=== PATIENT | male | born 1935 | race Caucasian/White ===

== ENCOUNTER 2017-09-07 15:52 | Emergency (ER) | payer MEDICARE, OTHER ==
[2017-09-07 17:01] LABS: ADD MAN DIFF? NO
[2017-09-07 17:05] LABS: BASOPHIL # 0.1 10^3/ul (0.0-0.1); EOSINOPHILS # 0.1 10^3/ul (0.0-0.5); EOSINOPHILS % 0.9 % (0.0-7.0); HEMATOCRIT 39.6 % (42.0-52.0); HEMOGLOBIN 12.9 g/dl (14.0-18.0); LYMPHOCYTES # 1.8 10^3/ul (0.8-2.9); LYMPHOCYTES % 25.8 % (15.0-51.0); MEAN CORPUSCULAR HEMOGLOBIN 31.7 pg (29.0-33.0); MEAN CORPUSCULAR HGB CONC 32.6 g/dl (32.0-37.0); MEAN CORPUSCULAR VOLUME 97.3 fl (82.0-101.0); MEAN PLATELET VOLUME 11.3 fl (7.4-10.4); MONOCYTES % 13.9 % (0.0-11.0); NEUTROPHILS % 58.1 % (39.0-77.0); PLATELET COUNT 140 10^3/UL (140-415); POSITIVE DIFF @See below; RED BLOOD COUNT 4.07 10^6/ul (4.70-6.10); RED CELL DISTRIBUTION WIDTH 15.6 % (11.5-14.5)
[2017-09-07 17:05] LABS: WHITE BLOOD COUNT 6.9 10^3/ul (4.8-10.8)
[2017-09-07 17:22] LABS: INR 1.52; PROTIME 18.6 Sec (11.9-14.9); PT RATIO 1.5
[2017-09-07 17:27] LABS: ANION GAP 14 (8-16); BLOOD UREA NITROGEN 34 mg/dl (7-20); CALCIUM 8.6 mg/dl (8.4-10.2); CARBON DIOXIDE 27 mmol/L (21-31); CHLORIDE 114 mmol/L (97-110); CREATININE 1.09 mg/dl (0.61-1.24); GLUCOSE 108 mg/dl (70-220); POTASSIUM 3.6 mmol/L (3.5-5.1); SODIUM 151 mmol/L (135-144)
[2017-09-07 17:38] LABS: B-TYPE NATRIURETIC PEPTIDE 2970 PG/ML (0-450); TROPONIN-I < 0.012 ng/ml (0.00-0.12)
[2017-09-07] MEDS: SOD CHLORIDE 0.9% 500 ML IV (19:30)
[2017-09-07] MEDS ORDERED: ACETAMINOPHEN 325 MG TAB PO (20:30)
[2017-09-07] MEDS ORDERED: ONDANSETRON 4 MG INJ IV (20:30)
== END 2017-09-07 22:05 | disposition left against medical advice (07) ==
LOC: E/R 15:52
DX: I50.9 Heart failure, unspecified (principal); I10 Essential (primary) hypertension; I48.2 Chronic atrial fibrillation; R55 Syncope and collapse; D64.9 Anemia, unspecified; E87.1 Hypo-osmolality and hyponatremia; E86.0 Dehydration; J81.0 Acute pulmonary edema; J90 Pleural effusion, not elsewhere classified; E86.9 Volume depletion, unspecified; I25.10 Atherosclerotic heart disease of native coronary artery without angina pectoris; J44.1 Chronic obstructive pulmonary disease with (acute) exacerbation; Z95.1 Presence of aortocoronary bypass graft; Z79.01 Long term (current) use of anticoagulants
CPT/HCPCS: 36415; 71045; 80048; 82962; 83880; 84484; 85025; 85610; 93005; 99285-25

== ENCOUNTER 2018-11-21 17:09 | Inpatient (IN) | payer MEDICARE, OTHER ==
[2018-11-21 17:30] LABS: ADD MAN DIFF? NO
[2018-11-21 17:31] LABS: WHITE BLOOD COUNT 6.5 10^3/ul (4.8-10.8)
[2018-11-21 17:31] LABS: BASOPHIL # 0.1 10^3/ul (0.0-0.1); BASOPHILS % 1.1 % (0.0-2.0); EOSINOPHILS # 0.1 10^3/ul (0.0-0.5); EOSINOPHILS % 1.2 % (0.0-7.0); HEMATOCRIT 42.2 % (42.0-52.0); HEMOGLOBIN 14.1 g/dl (14.0-18.0); LYMPHOCYTES # 2.1 10^3/ul (0.8-2.9); LYMPHOCYTES % 32.7 % (15.0-51.0); MEAN CORPUSCULAR HEMOGLOBIN 31.5 pg (29.0-33.0); MEAN CORPUSCULAR HGB CONC 33.4 g/dl (32.0-37.0); MEAN CORPUSCULAR VOLUME 94.2 fl (82.0-101.0); MEAN PLATELET VOLUME 10.5 fl (7.4-10.4); MONOCYTE # 0.8 10^3/ul (0.3-0.9); MONOCYTES % 12.4 % (0.0-11.0); NEUTROPHIL # 3.4 10^3/ul (1.6-7.5); NEUTROPHILS % 52.3 % (39.0-77.0); PLATELET COUNT 168 10^3/UL (140-415); RED BLOOD COUNT 4.48 10^6/ul (4.70-6.10); RED CELL DISTRIBUTION WIDTH 13.5 % (11.5-14.5)
[2018-11-21 17:51] LABS: ANION GAP 13 (5-13); BLOOD UREA NITROGEN 26 mg/dl (7-20); CALCIUM 9.5 mg/dl (8.4-10.2); CARBON DIOXIDE 23 mmol/L (21-31); CHLORIDE 107 mmol/L (97-110); CREATININE 1.15 mg/dl (0.61-1.24); GLUCOSE 104 mg/dl (70-220); SODIUM 143 mmol/L (135-144)
[2018-11-21 17:52] LABS: CHOLESTEROL 159 mg/dl (100-200)
[2018-11-21 17:52] LABS: CHOL/HDL RATIO 4.4 RATIO; CREATINE KINASE 171 IU/L (23-200); HDL CHOLESTEROL 36 mg/dl (31-75); LDL CHOLESTEROL,CALCULATED 96 mg/dl; TRIGLYCERIDES 133 mg/dl (0-149)
[2018-11-21 17:53] LABS: ETHANOL < 10.0 mg/dl (0-0)
[2018-11-21 17:54] LABS: INR 1.04; PROTIME 13.7 Sec (11.9-14.9); PT RATIO 1.1
[2018-11-21 18:03] LABS: TROPONIN-I < 0.012 ng/ml (0.000-0.120)
[2018-11-21] MEDS: SOD CHLORIDE 0.9% 500 ML IV (18:03)
[2018-11-21 18:04] LABS: CK-MB 1.63 ng/ml (0.0-2.4); TROPONIN-I < 0.012 ng/ml (0.000-0.120)
[2018-11-21 18:05] LABS: HEMOGLOBIN A1C 5.2 % (0-5.9)
[2018-11-21 18:17] LABS: ADD UMIC NO; UR ASCORBIC ACID 20 mg/dL (NEGATIVE); UR BILIRUBIN (Dip) NEGATIVE (NEGATIVE); UR BLOOD (Dip) NEGATIVE (NEGATIVE); UR CLARITY CLEAR (CLEAR); UR COLOR YELLOW (YELLOW); UR GLUCOSE (Dip) NEGATIVE (NEGATIVE); UR KETONES (Dip) NEGATIVE (NEGATIVE); UR LEUKOCYTE ESTERASE (Dip) NEGATIVE Leu/ul (NEGATIVE); UR NITRITE (Dip) NEGATIVE (NEGATIVE); UR SPECIFIC GRAVITY (Dip) 1.008 (1.003-1.030); UR TOTAL PROTEIN (Dip) NEGATIVE (NEGATIVE); UR UROBILINOGEN (Dip) NEGATIVE (NEGATIVE)
[2018-11-21 18:34] LABS: AADO2 Arterial 36.3 mmHg (7.0-24.0); Allen Test ACCEPTAB; Arterial Base Excess -0.9 mmol/L (-3.0-3); Arterial Blood Gas Oxygen Sat 93.6 mmHG (95.0-100.0); Arterial COHb 0.7 % (0.0-3.0); Arterial Fraction of Oxyhgb 92.8 % (93.0-99.0); Arterial HCO3 23.1 mmol/L (22.0-26.0); Arterial MetHb 0.2 % (0.0-1.5); Arterial pCO2 36.5 mmhg (35-45); MODE ROOM AIR; Site Right Radial
[2018-11-21 18:37] LABS: AMPHETAMINE/METHAMPHETAMINE Negative (NEGATIVE); BARBITURATES Negative (NEGATIVE); BENZODIAZEPINES Negative (NEGATIVE); CANNABINOIDS Negative (NEGATIVE); COCAINE Negative (NEGATIVE); OPIATES Negative (NEGATIVE)
[2018-11-21] MEDS ORDERED: ACETAMINOPHEN 325 MG TAB PO (19:30)
[2018-11-21] MEDS ORDERED: ONDANSETRON 4 MG INJ IV (19:30)
[2018-11-21 19:34] LABS: AMMONIA 32 umol/l (9-30)
[2018-11-21 20:01] LABS: FREE T4 (FREE THYROXINE) 1.54 ng/dl (0.85-1.93)
[2018-11-21] MEDS ORDERED: ACETAMINOPHEN 650 MG SUPP PR (21:00)
[2018-11-21] MEDS ORDERED: NACL 0.9% 3 ML SYG IV (21:00)
[2018-11-21] MEDS: DEXTROSE 5%-0.45% NACL 1,000 ML IV (21:06)
[2018-11-21] MEDS: SOD CHLORIDE 0.9% 100 ML (21:41)
[2018-11-21] MEDS: IOHEXOL 100 ML (21:41)
[2018-11-21 22:26] LABS: CREATINE KINASE 168 IU/L (23-200)
[2018-11-21 22:39] LABS: CK INDEX 0.7; CK-MB 1.17 ng/ml (0.0-2.4); TROPONIN-I 0.013 ng/ml (0.000-0.120)
[2018-11-22] MEDS ORDERED: METOPROLOL 5 MG INJ IV (05:30)
[2018-11-22 05:59] LABS: ADD MAN DIFF? NO
[2018-11-22 06:02] LABS: BASOPHIL # 0.1 10^3/ul (0.0-0.1); EOSINOPHILS # 0.1 10^3/ul (0.0-0.5); EOSINOPHILS % 0.8 % (0.0-7.0); HEMATOCRIT 41.9 % (42.0-52.0); HEMOGLOBIN 13.6 g/dl (14.0-18.0); LYMPHOCYTES # 1.6 10^3/ul (0.8-2.9); LYMPHOCYTES % 20.8 % (15.0-51.0); MEAN CORPUSCULAR HEMOGLOBIN 30.6 pg (29.0-33.0); MEAN CORPUSCULAR HGB CONC 32.5 g/dl (32.0-37.0); MEAN CORPUSCULAR VOLUME 94.4 fl (82.0-101.0); MEAN PLATELET VOLUME 11.2 fl (7.4-10.4); MONOCYTE # 0.9 10^3/ul (0.3-0.9); MONOCYTES % 11.2 % (0.0-11.0); NEUTROPHIL # 5.1 10^3/ul (1.6-7.5); NEUTROPHILS % 65.9 % (39.0-77.0); PLATELET COUNT 153 10^3/UL (140-415); RED BLOOD COUNT 4.44 10^6/ul (4.70-6.10); RED CELL DISTRIBUTION WIDTH 13.5 % (11.5-14.5)
[2018-11-22 06:02] LABS: WHITE BLOOD COUNT 7.7 10^3/ul (4.8-10.8)
[2018-11-22] MEDS: LACTULOSE 30ML CUP PO ×3 (06:22→18:17)
[2018-11-22 06:25] LABS: HAAIG REFLEX REFLEX FILED
[2018-11-22 06:26] LABS: ALANINE AMINOTRANSFERASE 28 IU/L (13-69); ALBUMIN 3.9 g/dl (3.3-4.9); ALBUMIN/GLOBULIN RATIO 1.14; ALKALINE PHOSPHATASE 60 IU/L (42-121); ANION GAP 11 (5-13); ASPARTATE AMINO TRANSFERASE 27 IU/L (15-46); BILIRUBIN,INDIRECT 0.8 mg/dl (0-1.1); BILIRUBIN,TOTAL 0.8 mg/dl (0.2-1.3); BLOOD UREA NITROGEN 23 mg/dl (7-20); CALCIUM 8.5 mg/dl (8.4-10.2); CARBON DIOXIDE 23 mmol/L (21-31); CHLORIDE 108 mmol/L (97-110); CREATININE 0.91 mg/dl (0.61-1.24); GLUCOSE 123 mg/dl (70-220); MAGNESIUM 1.9 mg/dl (1.7-2.5); POTASSIUM 3.5 mmol/L (3.5-5.1); SODIUM 142 mmol/L (135-144); TOTAL PROTEIN 7.3 g/dl (6.1-8.1)
[2018-11-22 06:29] LABS: CREATINE KINASE 211 IU/L (23-200)
[2018-11-22 06:37] LABS: CK INDEX 0.7; CK-MB 1.41 ng/ml (0.0-2.4); TROPONIN-I 0.031 ng/ml (0.000-0.120)
[2018-11-22 07:23] LABS: HEPATITIS B SURFACE ANTIGEN NEGATIVE (NEGATIVE)
[2018-11-22 07:40] LABS: HEPATITIS B CORE ANTIBODY REACTIVE (NEGATIVE)
[2018-11-22 07:42] LABS: HEPATITIS C VIRAL ANTIBODY NEGATIVE (NEGATIVE)
[2018-11-22 08:02] LABS: HEPATITIS B SURFACE ANTIBODY NEGATIVE (NEGATIVE)
[2018-11-22] MEDS: FLUTICASONE 0.05% 16 GM NAS SPRAY NASAL (09:00)
[2018-11-22] MEDS: METHIMAZOLE 5 MG TAB PO (09:00)
[2018-11-22] MEDS: CLOPIDOGREL 75 MG TAB PO (09:30)
[2018-11-22] MEDS: ASCORBIC ACID 500 MG TAB PO (09:30)
[2018-11-22] MEDS: DRONEDARONE HYDROCHLORIDE 400 MG TAB PO ×2 (09:31→21:01)
[2018-11-22] MEDS: APIXABAN 5 MG TABLET PO ×2 (09:33→21:01)
[2018-11-22] MEDS: FLUTICASONE/VILANTEROL 100-25 INH (09:33)
[2018-11-22] MEDS: DEXTROSE 5%-0.45% NACL 1,000 ML IV (10:45)
[2018-11-22] MEDS: SOD CHLORIDE 0.9% 100 ML (14:50)
[2018-11-22] MEDS: IOHEXOL 300MG/ML 150 ML BTL (14:50)
[2018-11-22] MEDS: ALFUZOSIN (SR) 10 MG TAB PO (21:00)
[2018-11-22] MEDS: ATORVASTATIN 40 MG TAB PO (21:00)
[2018-11-22] MEDS ORDERED: NON-FORMULARY/PATIENT OWN MED (Rosuvastatin Calcium* (Crestor*) 10 MG) PO (21:00)
[2018-11-23] MEDS: LACTULOSE 30ML CUP PO (00:23)
[2018-11-23 05:06] LABS: ADD MAN DIFF? NO
[2018-11-23 05:08] LABS: WHITE BLOOD COUNT 7.7 10^3/ul (4.8-10.8)
[2018-11-23 05:09] LABS: BASOPHILS % 0.5 % (0.0-2.0); EOSINOPHILS # 0.1 10^3/ul (0.0-0.5); EOSINOPHILS % 1.6 % (0.0-7.0); HEMATOCRIT 40.4 % (42.0-52.0); HEMOGLOBIN 13.2 g/dl (14.0-18.0); LYMPHOCYTES # 1.6 10^3/ul (0.8-2.9); LYMPHOCYTES % 21.3 % (15.0-51.0); MEAN CORPUSCULAR HEMOGLOBIN 30.8 pg (29.0-33.0); MEAN CORPUSCULAR HGB CONC 32.7 g/dl (32.0-37.0); MEAN CORPUSCULAR VOLUME 94.4 fl (82.0-101.0); MEAN PLATELET VOLUME 10.4 fl (7.4-10.4); MONOCYTES % 12.7 % (0.0-11.0); NEUTROPHIL # 4.9 10^3/ul (1.6-7.5); NEUTROPHILS % 63.6 % (39.0-77.0); PLATELET COUNT 150 10^3/UL (140-415); RED BLOOD COUNT 4.28 10^6/ul (4.70-6.10); RED CELL DISTRIBUTION WIDTH 13.6 % (11.5-14.5)
[2018-11-23 05:34] LABS: ALANINE AMINOTRANSFERASE 25 IU/L (13-69); ALBUMIN 3.7 g/dl (3.3-4.9); ALBUMIN/GLOBULIN RATIO 1.19; ALKALINE PHOSPHATASE 52 IU/L (42-121); ANION GAP 10 (5-13); ASPARTATE AMINO TRANSFERASE 25 IU/L (15-46); BLOOD UREA NITROGEN 14 mg/dl (7-20); CALCIUM 8.2 mg/dl (8.4-10.2); CARBON DIOXIDE 22 mmol/L (21-31); CHLORIDE 110 mmol/L (97-110); CREATININE 0.95 mg/dl (0.61-1.24); GLUCOSE 102 mg/dl (70-220); POTASSIUM 3.3 mmol/L (3.5-5.1); SODIUM 142 mmol/L (135-144); TOTAL PROTEIN 6.8 g/dl (6.1-8.1)
[2018-11-23] MEDS: APIXABAN 5 MG TABLET PO (08:26)
[2018-11-23] MEDS: DRONEDARONE HYDROCHLORIDE 400 MG TAB PO ×2 (08:27→21:12)
[2018-11-23] MEDS: ASCORBIC ACID 500 MG TAB PO (08:28)
[2018-11-23] MEDS: FLUTICASONE/VILANTEROL 100-25 INH (08:28)
[2018-11-23] MEDS: METHIMAZOLE 5 MG TAB PO (08:28)
[2018-11-23] MEDS: FLUTICASONE 0.05% 16 GM NAS SPRAY NASAL (09:00)
[2018-11-23] MEDS: CLOPIDOGREL 75 MG TAB PO (09:00)
[2018-11-23] MEDS ORDERED: ENOXAPARIN 40 MG/0.4 ML SYG SC (09:00)
[2018-11-23] MEDS ORDERED: HEPARIN 1000 UNITS/ML 10 ML INJ IV ×2 (12:30→21:00)
[2018-11-23] MEDS: WARFARIN 5 MG TAB PO (18:18)
[2018-11-23] MEDS: ATORVASTATIN 40 MG TAB PO (21:12)
[2018-11-23] MEDS: HEPARIN 25000 UNITS/250 ML 250 ML IV (21:25)
[2018-11-23] MEDS: ALFUZOSIN (SR) 10 MG TAB PO (22:48)
[2018-11-24 00:05] LABS: ANION GAP 13 (5-13)
[2018-11-24 00:06] LABS: BLOOD UREA NITROGEN 22 mg/dl (7-20); CALCIUM 8.9 mg/dl (8.4-10.2); CARBON DIOXIDE 21 mmol/L (21-31); CHLORIDE 106 mmol/L (97-110); CREATININE 1.14 mg/dl (0.61-1.24); GLUCOSE 97 mg/dl (70-220); POTASSIUM 3.9 mmol/L (3.5-5.1); SODIUM 140 mmol/L (135-144)
[2018-11-24 03:32] LABS: PARTIAL THROMBOPLASTIN TIME 57.4 Sec (23.0-35.0)
[2018-11-24 03:39] LABS: PROTIME 15.3 Sec (11.9-14.9); PT RATIO 1.2
[2018-11-24] MEDS: POTASSIUM CHLORIDE (SR) 20 MEQ TAB PO (04:03)
[2018-11-24] MEDS: METOPROLOL 5 MG INJ IV (04:03)
[2018-11-24 05:12] LABS: ADD MAN DIFF? NO
[2018-11-24 05:25] LABS: BASOPHIL # 0.1 10^3/ul (0.0-0.1); BASOPHILS % 0.7 % (0.0-2.0); EOSINOPHILS # 0.2 10^3/ul (0.0-0.5); EOSINOPHILS % 2.4 % (0.0-7.0); HEMATOCRIT 39.9 % (42.0-52.0); HEMOGLOBIN 13.2 g/dl (14.0-18.0); LYMPHOCYTES # 1.4 10^3/ul (0.8-2.9); LYMPHOCYTES % 21.6 % (15.0-51.0); MEAN CORPUSCULAR HEMOGLOBIN 31.2 pg (29.0-33.0); MEAN CORPUSCULAR HGB CONC 33.1 g/dl (32.0-37.0); MEAN CORPUSCULAR VOLUME 94.3 fl (82.0-101.0); MEAN PLATELET VOLUME 10.5 fl (7.4-10.4); MONOCYTES % 14.5 % (0.0-11.0); NEUTROPHILS % 60.7 % (39.0-77.0); PLATELET COUNT 147 10^3/UL (140-415); RED BLOOD COUNT 4.23 10^6/ul (4.70-6.10); RED CELL DISTRIBUTION WIDTH 13.7 % (11.5-14.5)
[2018-11-24 05:25] LABS: WHITE BLOOD COUNT 6.7 10^3/ul (4.8-10.8)
[2018-11-24 06:18] LABS: ALANINE AMINOTRANSFERASE 27 IU/L (13-69); ALBUMIN 3.6 g/dl (3.3-4.9); ALBUMIN/GLOBULIN RATIO 1.12; ALKALINE PHOSPHATASE 51 IU/L (42-121); ANION GAP 11 (5-13); ASPARTATE AMINO TRANSFERASE 24 IU/L (15-46); BILIRUBIN,INDIRECT 0.8 mg/dl (0-1.1); BILIRUBIN,TOTAL 0.8 mg/dl (0.2-1.3); BLOOD UREA NITROGEN 20 mg/dl (7-20); CALCIUM 8.7 mg/dl (8.4-10.2); CARBON DIOXIDE 21 mmol/L (21-31); CHLORIDE 107 mmol/L (97-110); CREATININE 1.12 mg/dl (0.61-1.24); GLUCOSE 101 mg/dl (70-220); POTASSIUM 3.6 mmol/L (3.5-5.1); SODIUM 139 mmol/L (135-144); TOTAL PROTEIN 6.8 g/dl (6.1-8.1)
[2018-11-24] MEDS: ASCORBIC ACID 500 MG TAB PO (08:30)
[2018-11-24] MEDS: DRONEDARONE HYDROCHLORIDE 400 MG TAB PO ×2 (08:30→20:38)
[2018-11-24] MEDS: METHIMAZOLE 5 MG TAB PO (08:31)
[2018-11-24] MEDS: FLUTICASONE/VILANTEROL 100-25 INH (08:31)
[2018-11-24] MEDS: FLUTICASONE 0.05% 16 GM NAS SPRAY NASAL (09:00)
[2018-11-24] MEDS: SPIRONOLACTONE 25 MG TAB PO (11:16)
[2018-11-24] MEDS: FUROSEMIDE 20 MG TAB PO (11:16)
[2018-11-24 11:36] LABS: PARTIAL THROMBOPLASTIN TIME 117.6 Sec (23.0-35.0)
[2018-11-24] MEDS: WARFARIN 5 MG TAB PO (17:08)
[2018-11-24 20:04] LABS: PARTIAL THROMBOPLASTIN TIME 98.6 Sec (23.0-35.0)
[2018-11-24] MEDS: ALFUZOSIN (SR) 10 MG TAB PO (20:38)
[2018-11-24] MEDS: ATORVASTATIN 40 MG TAB PO (20:38)
[2018-11-24] MEDS: HEPARIN 25000 UNITS/250 ML 250 ML IV (23:11)
[2018-11-25 02:44] LABS: PARTIAL THROMBOPLASTIN TIME 92.1 Sec (23.0-35.0)
[2018-11-25 04:58] LABS: ADD MAN DIFF? NO
[2018-11-25 05:21] LABS: BASOPHIL # 0.1 10^3/ul (0.0-0.1); EOSINOPHILS # 0.1 10^3/ul (0.0-0.5); EOSINOPHILS % 1.9 % (0.0-7.0); HEMATOCRIT 40.7 % (42.0-52.0); HEMOGLOBIN 13.4 g/dl (14.0-18.0); LYMPHOCYTES # 1.6 10^3/ul (0.8-2.9); LYMPHOCYTES % 23.3 % (15.0-51.0); MEAN CORPUSCULAR HEMOGLOBIN 31.4 pg (29.0-33.0); MEAN CORPUSCULAR HGB CONC 32.9 g/dl (32.0-37.0); MEAN CORPUSCULAR VOLUME 95.3 fl (82.0-101.0); MEAN PLATELET VOLUME 10.9 fl (7.4-10.4); MONOCYTES % 14.3 % (0.0-11.0); NEUTROPHIL # 4.2 10^3/ul (1.6-7.5); NEUTROPHILS % 59.2 % (39.0-77.0); PLATELET COUNT 157 10^3/UL (140-415); RED BLOOD COUNT 4.27 10^6/ul (4.70-6.10); RED CELL DISTRIBUTION WIDTH 13.7 % (11.5-14.5)
[2018-11-25 05:36] LABS: INR 1.26; PROTIME 15.9 Sec (11.9-14.9); PT RATIO 1.2
[2018-11-25 05:48] LABS: ALANINE AMINOTRANSFERASE 31 IU/L (13-69); ALBUMIN 3.8 g/dl (3.3-4.9); ALBUMIN/GLOBULIN RATIO 1.11; ALKALINE PHOSPHATASE 59 IU/L (42-121); ANION GAP 9 (5-13); ASPARTATE AMINO TRANSFERASE 25 IU/L (15-46); BILIRUBIN,INDIRECT 0.6 mg/dl (0-1.1); BILIRUBIN,TOTAL 0.6 mg/dl (0.2-1.3); BLOOD UREA NITROGEN 22 mg/dl (7-20); CALCIUM 8.9 mg/dl (8.4-10.2); CARBON DIOXIDE 24 mmol/L (21-31); CHLORIDE 106 mmol/L (97-110); GLUCOSE 101 mg/dl (70-220); POTASSIUM 3.5 mmol/L (3.5-5.1); SODIUM 139 mmol/L (135-144); TOTAL PROTEIN 7.2 g/dl (6.1-8.1)
[2018-11-25 08:38] LABS: PARTIAL THROMBOPLASTIN TIME 75.7 Sec (23.0-35.0)
[2018-11-25] MEDS: FLUTICASONE 0.05% 16 GM NAS SPRAY NASAL (09:00)
[2018-11-25] MEDS: METHIMAZOLE 5 MG TAB PO (09:00)
[2018-11-25] MEDS: FLUTICASONE/VILANTEROL 100-25 INH (09:00)
[2018-11-25] MEDS: ASCORBIC ACID 500 MG TAB PO (09:20)
[2018-11-25] MEDS: FUROSEMIDE 20 MG TAB PO (09:21)
[2018-11-25] MEDS: SPIRONOLACTONE 25 MG TAB PO (09:21)
[2018-11-25] MEDS: DRONEDARONE HYDROCHLORIDE 400 MG TAB PO ×2 (09:21→21:20)
[2018-11-25 16:10] LABS: PARTIAL THROMBOPLASTIN TIME 60.9 Sec (23.0-35.0)
[2018-11-25] MEDS: WARFARIN 5 MG TAB PO (17:18)
[2018-11-25] MEDS: ALFUZOSIN (SR) 10 MG TAB PO (21:57)
[2018-11-25] MEDS: ATORVASTATIN 40 MG TAB PO (21:57)
[2018-11-25 22:22] LABS: PARTIAL THROMBOPLASTIN TIME 64.4 Sec (23.0-35.0)
[2018-11-26 05:48] LABS: PROTIME 20.1 Sec (11.9-14.9); PT RATIO 1.6
[2018-11-26] MEDS: FLUTICASONE 0.05% 16 GM NAS SPRAY NASAL (09:00)
[2018-11-26] MEDS: FLUTICASONE/VILANTEROL 100-25 INH (09:00)
[2018-11-26] MEDS: METHIMAZOLE 5 MG TAB PO (09:08)
[2018-11-26] MEDS: DRONEDARONE HYDROCHLORIDE 400 MG TAB PO ×2 (09:08→21:08)
[2018-11-26] MEDS: ASCORBIC ACID 500 MG TAB PO (09:09)
[2018-11-26] MEDS: FUROSEMIDE 20 MG TAB PO (09:09)
[2018-11-26] MEDS: SPIRONOLACTONE 25 MG TAB PO (09:09)
[2018-11-26 09:11] LABS: PARTIAL THROMBOPLASTIN TIME 70.7 Sec (23.0-35.0)
[2018-11-26] MEDS: WARFARIN 5 MG TAB PO (17:00)
[2018-11-26] MEDS: HEPARIN 25000 UNITS/250 ML 250 ML IV (17:05)
[2018-11-26] MEDS: ATORVASTATIN 40 MG TAB PO (21:08)
[2018-11-26] MEDS: ALFUZOSIN (SR) 10 MG TAB PO (21:08)
[2018-11-26 23:20] LABS: PARTIAL THROMBOPLASTIN TIME 73.7 Sec (23.0-35.0)
[2018-11-27 05:38] LABS: ADD MAN DIFF? NO
[2018-11-27 05:47] LABS: WHITE BLOOD COUNT 6.2 10^3/ul (4.8-10.8)
[2018-11-27 05:48] LABS: BASOPHIL # 0.1 10^3/ul (0.0-0.1); BASOPHILS % 1.1 % (0.0-2.0); EOSINOPHILS # 0.1 10^3/ul (0.0-0.5); EOSINOPHILS % 2.2 % (0.0-7.0); HEMATOCRIT 41.4 % (42.0-52.0); HEMOGLOBIN 13.7 g/dl (14.0-18.0); LYMPHOCYTES # 1.8 10^3/ul (0.8-2.9); LYMPHOCYTES % 29.5 % (15.0-51.0); MEAN CORPUSCULAR HEMOGLOBIN 31.6 pg (29.0-33.0); MEAN CORPUSCULAR HGB CONC 33.1 g/dl (32.0-37.0); MEAN CORPUSCULAR VOLUME 95.4 fl (82.0-101.0); MEAN PLATELET VOLUME 10.7 fl (7.4-10.4); MONOCYTE # 0.9 10^3/ul (0.3-0.9); MONOCYTES % 14.8 % (0.0-11.0); NEUTROPHIL # 3.2 10^3/ul (1.6-7.5); NEUTROPHILS % 52.1 % (39.0-77.0); PLATELET COUNT 175 10^3/UL (140-415); RED BLOOD COUNT 4.34 10^6/ul (4.70-6.10); RED CELL DISTRIBUTION WIDTH 13.6 % (11.5-14.5)
[2018-11-27 06:08] LABS: INR 2.52; PROTIME 27.2 Sec (11.9-14.9); PT RATIO 2.1
[2018-11-27 07:54] LABS: PARTIAL THROMBOPLASTIN TIME 89.8 Sec (23.0-35.0)
[2018-11-27] MEDS: DRONEDARONE HYDROCHLORIDE 400 MG TAB PO ×2 (08:40→23:13)
[2018-11-27] MEDS: METHIMAZOLE 5 MG TAB PO (08:41)
[2018-11-27] MEDS: FUROSEMIDE 20 MG TAB PO (08:41)
[2018-11-27] MEDS: SPIRONOLACTONE 25 MG TAB PO (08:42)
[2018-11-27] MEDS: FLUTICASONE/VILANTEROL 100-25 INH (08:42)
[2018-11-27] MEDS: ASCORBIC ACID 500 MG TAB PO (08:42)
[2018-11-27] MEDS: ALBUTEROL HFA 8 GM INHALER INH ×2 (08:43→20:19)
[2018-11-27] MEDS: FLUTICASONE 0.05% 16 GM NAS SPRAY NASAL (08:44)
[2018-11-27 08:54] LABS: ANION GAP 13 (5-13); BLOOD UREA NITROGEN 24 mg/dl (7-20); CALCIUM 9.2 mg/dl (8.4-10.2); CARBON DIOXIDE 22 mmol/L (21-31); CHLORIDE 106 mmol/L (97-110); GLUCOSE 102 mg/dl (70-220); POTASSIUM 3.9 mmol/L (3.5-5.1); SODIUM 141 mmol/L (135-144)
[2018-11-27] MEDS ORDERED: FENTAnyl (DRIP) 1000 mcg/100mL 100 ML IV (14:09)
[2018-11-27] MEDS: WARFARIN 5 MG TAB PO (18:48)
[2018-11-27] MEDS: ALFUZOSIN (SR) 10 MG TAB PO (21:00)
[2018-11-27] MEDS: ATORVASTATIN 40 MG TAB PO (23:13)
[2018-11-28 07:45] LABS: PROTIME 30.4 Sec (11.9-14.9); PT RATIO 2.4
[2018-11-28] MEDS: FLUTICASONE 0.05% 16 GM NAS SPRAY NASAL (08:15)
[2018-11-28] MEDS: FLUTICASONE/VILANTEROL 100-25 INH (08:15)
[2018-11-28] MEDS: SPIRONOLACTONE 25 MG TAB PO (08:15)
[2018-11-28] MEDS: DRONEDARONE HYDROCHLORIDE 400 MG TAB PO ×2 (08:16→21:11)
[2018-11-28] MEDS: ASCORBIC ACID 500 MG TAB PO (08:19)
[2018-11-28] MEDS: FUROSEMIDE 20 MG TAB PO (08:19)
[2018-11-28] MEDS: WARFARIN 5 MG TAB PO (17:03)
[2018-11-28] MEDS: ALFUZOSIN (SR) 10 MG TAB PO (21:11)
[2018-11-28] MEDS: ATORVASTATIN 40 MG TAB PO (21:11)
== END 2018-11-28 21:45 | DRG 64 ==
LOC: 6WM 11-22 01:07 → TEL 11-27 20:38 → ICU 11-23 20:23 → E/R 17:09 → 6WM 19:26
PROVIDERS: Family Medicine
DX: I63.9 Cerebral infarction, unspecified (principal); G92 Toxic encephalopathy; G81.91 Hemiplegia, unspecified affecting right dominant side; E72.20 Disorder of urea cycle metabolism, unspecified; I11.0 Hypertensive heart disease with heart failure; I50.9 Heart failure, unspecified; I48.2 Chronic atrial fibrillation; I25.5 Ischemic cardiomyopathy; E78.5 Hyperlipidemia, unspecified; I25.10 Atherosclerotic heart disease of native coronary artery without angina pectoris; Z95.810 Presence of automatic (implantable) cardiac defibrillator; R09.02 Hypoxemia; Z79.02 Long term (current) use of antithrombotics/antiplatelets; Z79.01 Long term (current) use of anticoagulants; Z95.1 Presence of aortocoronary bypass graft; I51.3 Intracardiac thrombosis, not elsewhere classified
CPT/HCPCS: 36415; 36600; 70450; 70470; 70496; 70498; 71045; 76705; 80048; 80053; 80061; 80307; 81003; 82140; 82306; 82550; 82553; 82803; 82962; 83036; 83735; 84439; 84443; 84484; 85025; 85610; 85730; 86704; 86706; 86708; 86709; 86803; 87081; 87340; 92610; 93005; 93306; 93880; 97110; 97116; 97163; 97164; 97165; 97168; 97530; 97535; 99285-25

== ENCOUNTER 2018-11-28 22:08 | Inpatient (IN) | payer MEDICARE, OTHER ==
[2018-11-28] MEDS ORDERED: MAGNESIUM HYDROXIDE 30ML CUP PO (23:00)
[2018-11-28] MEDS ORDERED: ACETAMINOPHEN 325 MG TAB PO (23:00)
[2018-11-28] MEDS ORDERED: BISACODYL 10 MG SUPP PR (23:00)
[2018-11-28] MEDS ORDERED: LACTULOSE 30ML CUP PO (23:00)
[2018-11-28] MEDS ORDERED: PENDING SANTYL ORDER FOR WOUND CARE XX (23:00)
[2018-11-28] MEDS ORDERED: ALBUTEROL HFA 8 GM INHALER INH (23:30)
[2018-11-29 02:16] LABS: ADD UMIC NO; UR ASCORBIC ACID NEGATIVE (NEGATIVE); UR BILIRUBIN (Dip) NEGATIVE (NEGATIVE); UR BLOOD (Dip) NEGATIVE (NEGATIVE); UR CLARITY CLEAR (CLEAR); UR COLOR STRAW (YELLOW); UR GLUCOSE (Dip) NEGATIVE (NEGATIVE); UR KETONES (Dip) NEGATIVE (NEGATIVE); UR LEUKOCYTE ESTERASE (Dip) NEGATIVE Leu/ul (NEGATIVE); UR NITRITE (Dip) NEGATIVE (NEGATIVE); UR SPECIFIC GRAVITY (Dip) 1.006 (1.003-1.030); UR TOTAL PROTEIN (Dip) NEGATIVE (NEGATIVE); UR UROBILINOGEN (Dip) NEGATIVE (NEGATIVE)
[2018-11-29 07:21] LABS: ADD MAN DIFF? NO
[2018-11-29 07:24] LABS: WHITE BLOOD COUNT 6.7 10^3/ul (4.8-10.8)
[2018-11-29 07:24] LABS: BASOPHIL # 0.1 10^3/ul (0.0-0.1); BASOPHILS % 1.5 % (0.0-2.0); EOSINOPHILS # 0.1 10^3/ul (0.0-0.5); EOSINOPHILS % 1.8 % (0.0-7.0); HEMATOCRIT 44.3 % (42.0-52.0); HEMOGLOBIN 14.3 g/dl (14.0-18.0); LYMPHOCYTES # 1.9 10^3/ul (0.8-2.9); LYMPHOCYTES % 28.8 % (15.0-51.0); MEAN CORPUSCULAR HEMOGLOBIN 30.8 pg (29.0-33.0); MEAN CORPUSCULAR HGB CONC 32.3 g/dl (32.0-37.0); MEAN CORPUSCULAR VOLUME 95.3 fl (82.0-101.0); MEAN PLATELET VOLUME 10.5 fl (7.4-10.4); MONOCYTE # 0.9 10^3/ul (0.3-0.9); MONOCYTES % 13.1 % (0.0-11.0); NEUTROPHIL # 3.6 10^3/ul (1.6-7.5); NEUTROPHILS % 54.4 % (39.0-77.0); PLATELET COUNT 183 10^3/UL (140-415); RED BLOOD COUNT 4.65 10^6/ul (4.70-6.10); RED CELL DISTRIBUTION WIDTH 13.6 % (11.5-14.5)
[2018-11-29 07:44] LABS: ALANINE AMINOTRANSFERASE 59 IU/L (13-69); ALKALINE PHOSPHATASE 56 IU/L (42-121); ANION GAP 10 (5-13); ASPARTATE AMINO TRANSFERASE 58 IU/L (15-46); BILIRUBIN,INDIRECT 0.4 mg/dl (0-1.1); BILIRUBIN,TOTAL 0.4 mg/dl (0.2-1.3); BLOOD UREA NITROGEN 26 mg/dl (7-20); CALCIUM 9.4 mg/dl (8.4-10.2); CARBON DIOXIDE 26 mmol/L (21-31); CHLORIDE 105 mmol/L (97-110); CREATININE 1.24 mg/dl (0.61-1.24); GLUCOSE 100 mg/dl (70-220); POTASSIUM 4.1 mmol/L (3.5-5.1); SODIUM 141 mmol/L (135-144); TOTAL PROTEIN 7.3 g/dl (6.1-8.1)
[2018-11-29 07:45] LABS: ALBUMIN/GLOBULIN RATIO 1.21
[2018-11-29] MEDS: FLUTICASONE 0.05% 16 GM NAS SPRAY NASAL (09:00)
[2018-11-29] MEDS: FLUTICASONE/VILANTEROL 100-25 INH (09:02)
[2018-11-29] MEDS: FUROSEMIDE 40 MG TAB PO (09:03)
[2018-11-29] MEDS: DOCUSATE SODIUM 100 MG CAP PO (09:03)
[2018-11-29] MEDS: SPIRONOLACTONE 25 MG TAB PO (09:03)
[2018-11-29] MEDS: ASCORBIC ACID 500 MG TAB PO (09:03)
[2018-11-29] MEDS: DRONEDARONE HYDROCHLORIDE 400 MG TAB PO (09:04)
[2018-11-29] MEDS ORDERED: WARFARIN 5 MG TAB PO (17:00)
[2018-11-29] MEDS ORDERED: ALFUZOSIN (SR) 10 MG TAB PO (21:00)
[2018-11-29] MEDS ORDERED: ATORVASTATIN 40 MG TAB PO (21:00)
[2018-11-29] MEDS ORDERED: SENNA TAB PO (21:00)
== END 2018-11-29 13:30 | disposition home health service (06) | DRG 57 ==
LOC: VRC 22:08
DX: I69.951 Hemiplegia and hemiparesis following unspecified cerebrovascular disease affecting right dominant side (principal); I10 Essential (primary) hypertension; I25.10 Atherosclerotic heart disease of native coronary artery without angina pectoris; G31.84 Mild cognitive impairment of uncertain or unknown etiology; Z74.09 Other reduced mobility
CPT/HCPCS: 80053; 81003; 85025; 87081; 87086; 92523; 97161; 97165